=== PATIENT | male | born 1970 | race Caucasian/White ===

== ENCOUNTER 2023-09-11 04:07 | Day surgery (SDC) | payer OTHER ==
[2023-09-05 10:53] VITALS: BMI 27.1
[2023-09-11] MEDS ORDERED: BACITRACIN ZINC 15 GM TUBE TOPICAL OINTMENT ONE (12:08)
[2023-09-11] MEDS ORDERED: LIDOCAINE HCL 1%, 10 MG/ML (20ML VIAL) ONE (12:08)
[2023-09-11] MEDS ORDERED: MIDAZOLAM HCL 2 MG/2 ML SINGLE DOSE VIAL ONE (12:17)
[2023-09-11] MEDS ORDERED: PROPOFOL 20 ML ONE (12:17)
[2023-09-11] MEDS ORDERED: SUCCINYLCHOLINE CHLORIDE 200 MG/10 ML SYRINGE ONE (12:34)
[2023-09-11] MEDS: ceFAZolin SODIUM 1 GM VIAL IVPB ONE (13:46)
[2023-09-11] MEDS ORDERED: ONDANSETRON 4 MG/2 ML VIAL ONE (13:47)
[2023-09-11] MEDS ORDERED: DEXAMETHASONE SOD PHOSPHATE 4 MG/1 ML VIAL ONE (13:47)
[2023-09-11] MEDS ORDERED: KETOROLAC TROMETHAMINE 30 MG/1 ML VIAL ONE (13:47)
[2023-09-11] MEDS ORDERED: ceFAZolin SODIUM 1 GM VIAL ONE (13:47)
[2023-09-11] MEDS: LIDOCAINE HCL 1%, 10 MG/ML (20ML VIAL) INF ONE ×2 (13:49)
[2023-09-11] MEDS ORDERED: GLYCOPYRROLATE 0.2 MG/1 ML VIAL ONE (14:07)
[2023-09-11] MEDS ORDERED: oxyCODONE HCL 5 MG TABLET PO PRN (14:24)
[2023-09-11] MEDS ORDERED: ONDANSETRON 4 MG/2 ML VIAL IVPUSH PRN (14:24)
[2023-09-11] MEDS ORDERED: LACTATED RINGERS SOLUTION 1,000 ML IV SCH (14:30)
[2023-09-11] MEDS: ACETAMINOPHEN 1000 MG/100 ML BAG IVPB ONE (15:00)
[2023-09-11] MEDS ORDERED: ACETAMINOPHEN INJECTION 100 ML IVPB ONE (15:05)
[2023-09-11 15:35] VITALS: BP 131/66; PULSE 59; RESP 18; TEMP 97.9
== END 2023-09-11 16:24 | disposition home or self-care (01) ==
LOC: JASU-SURG 04:07
PROVIDERS: ATTEND Urology
PROC: 0VBK0ZZ Excision of Left Epididymis, Open Approach (ICD-10-PCS; 2023-09-11)
PROC: 0VBG0ZZ Excision of Left Spermatic Cord, Open Approach (ICD-10-PCS; principal; 2023-09-11 13:00)
DX: N50.3 Cyst of epididymis (principal); N43.3 Hydrocele, unspecified
CPT/HCPCS: 88304-TC; 94760; J0131